=== PATIENT | female | born 1990 | race African-American/Black ===

== ENCOUNTER 2021-01-16 08:16 | Emergency (ER) | payer OTHER ==
[~2021-01-16] VITALS: Ht 167.6 cm; Wt 77.1 kg
[2021-01-16 08:27] VITALS: BP 130/75
[2021-01-16] MEDS ORDERED: FLEXERIL PO (09:22)
[2021-01-16] MEDS ORDERED: IBUPROFEN 800800 M1 PO (09:22)
== END 2021-01-16 10:10 | disposition home or self-care (01) ==
LOC: ER 08:16
DX: S90.02XA Contusion of left ankle, initial encounter (principal); M54.32 Sciatica, left side; Z91.018 Allergy to other foods; W19.XXXA Unspecified fall, initial encounter; Y93.89 Activity, other specified; Y92.89 Other specified places as the place of occurrence of the external cause; Y99.8 Other external cause status

== ENCOUNTER → 2021-03-25 | Outpatient (CLI) | payer OTHER ==
[~2021-03-25] MED LIST: APAP W/CODEINE1 TA2 PO; AZITHROMYCIN250 MG PO; DOXYCYCLINE 10100 MG PO; FLEXERIL PO; IBUPROFEN 800800 M1 PO; INDOMETHACIN 2525 MG PO; SUPER THERAVIT1 EACH PO
[2021-03-25 08:58] LABS: BASOPHILS 0.3 % (0.0-2.0); EOSINOPHILS 2.4 % (0.0-3.0); HEMATOCRIT 28.3 % (37.0-47.0); HEMOGLOBIN 9.8 gm/dL (12.0-15.0); LYMPHOCYTES 15.7 % (24.0-44.0); MCH 27.4 pg (26.0-34.0); MCHC 34.8 g/dL (28.0-37.0); MCV 78.7 fL (80.0-100.0); MONOCYTES 6.8 % (1.0-8.0); PLATELET COUNT 514 thou/uL (150-400); POLYS 74.8 % (36.0-66.0); RBC 3.59 mil/uL (4.20-5.00); RDW 15.2 % (10.5-14.5)
[2021-03-25 09:10] LABS: ALBUMIN 2.7 g/dL (3.4-5.0); CALCIUM 8.8 mg/dL (8.5-10.1); CREATININE 0.9 mg/dL (0.6-1.0); POTASSIUM 4.1 mmol/L (3.5-5.1); TOTAL BILIRUBIN 0.2 mg/dL (0.2-1.0); TOTAL PROTEIN 8.1 g/dL (6.4-8.2)
[2021-03-26 09:08] LABS: ANTI-DNA SCREEN <1 IU/mL (0-9); ANTI-RNP <0.2 AI (0.0-0.9)
== END ==
LOC: ULTRA 08:11
PROVIDERS: ATTEND Nurse Practitioner
DX: E04.1 Nontoxic single thyroid nodule (principal); M25.461 Effusion, right knee; M25.561 Pain in right knee; R10.13 Epigastric pain

== ENCOUNTER → 2021-04-22 | Outpatient (CLI) | payer OTHER | LOC: MRI 10:06 | PROVIDERS: ATTEND Orthopaedic Surgery | DX: M25.561 Pain in right knee (principal) ==

== ENCOUNTER → 2021-06-03 | Outpatient (CLI) | payer OTHER ==
[~2021-06-03] MED LIST changes: +BLACK ELDERBER1 EACH PO; +IRON325 M1 PO; +TURMERIC500 M2 PO; +VITAMIN D3250 MCG PO
== END ==
LOC: MRI 07:55
PROVIDERS: ATTEND Orthopaedic Surgery Foot and Ankle Surgery
DX: S93.402A Sprain of unspecified ligament of left ankle, initial encounter (principal); S93.412A Sprain of calcaneofibular ligament of left ankle, initial encounter; X58.XXXA Exposure to other specified factors, initial encounter; Y92.89 Other specified places as the place of occurrence of the external cause; Y93.89 Activity, other specified; Y99.8 Other external cause status

== ENCOUNTER → 2021-06-05 | Outpatient (CLI) | payer OTHER | LOC: LAB 05:35 | PROVIDERS: ATTEND Student in an Organized Health Care Education/Training Program | DX: Z01.812 Encounter for preprocedural laboratory examination (principal); Z20.822 Contact with and (suspected) exposure to COVID-19 ==

== ENCOUNTER → 2021-06-09 | Outpatient (CLI) | payer OTHER ==
[~2021-06-09] VITALS: Ht 165.1 cm; Wt 68.0 kg
--- NOTE | 2021-06-11 13:07 | PATH ---
[facility] [place] [address] PATHOLOGY RPT PROCEDURE Name: KAITLIN ARANDA Room #: REG QUITALara Alves.#: [id number] Admission: 06/09/21 Date of : 88 Discharge: Report #: [id number] Path Case #: [id number] [facility] Accession Number: [id number] . 01 Material submitted: . PART A: colon - RANDOM COLON BIOPSIES PART B: rectosigmoid junction - RECTAL SIGMOID BIOPSIES . 01 Clinical history: . COLONOSCOPY ABD PAIN, DIARRHEA COLITIS FOR A,B- R/O INFECTIOUS COLITIS VS. INFLAMMATORY BOWEL DISEASE . 02 Diagnosis: A. Random colon, biopsy: - Colonic mucosa with acute colitis and without crypt architectural distortion. - Findings favor infectious-type etiology. - Negative for malignancy. . B. Rectal, sigmoid, endoscopic biopsies: - Colonic mucosa with prominent lymphoid aggregate, otherwise no significant histopathologic abnormality. . (ANK:marbella; 06/11/2021) QLM 06/11/2021 1133 Local . 02 Electronically signed: . Neeru Capps MD, Pathologist NPI- [id number] . 01 Gross description: . A. The specimen is received in formalin, labeled "Kaitlin Aranda, random colon biopsies". Received are multiple segments of pale murillo tissue ranging in size from 0.2 cm to 0.5 cm in maximum dimensions. The specimen is submitted entirely in cassette A1. . B. The specimen is received in formalin, labeled "Kaitlin Aranda, rectal sigmoid biopsies". Received are 4 segments of pale murillo tissue ranging in size from 0.3 to 0.4 cm in maximum dimensions. The specimen is submitted entirely in cassette B1.([facility]; 06/09/2021) [facility] 06/09/2021 1836 Local . 02 Pathologist provided ICD-10: K52.9, Z12.11, R10.9, R19.[address] . [address] [address] PATHOLOGY RPT PROCEDURE Name: KAITLIN ARANDA Room #: REG [facility]#: [id number] Admission: 06/09/21 Date of : 88 Discharge: Report #: [id number] Path Case #: [id number] [facility] . [id number], [id number] Specimen Comment: A courtesy copy of this report has been sent to [phone] Specimen Comment: Report sent to Performed at: [address] [facility] [address], [place], [place] [id number] MD Lito Schaffer MD Phone: [phone] Performed at: [address] [facility] [id number] MD Neeru Capps MD Phone: [phone]
== END | disposition home or self-care (01) ==
LOC: GI 08:08
PROVIDERS: ATTEND Internal Medicine Gastroenterology
DX: K52.9 Noninfective gastroenteritis and colitis, unspecified (principal); K50.10 Crohn's disease of large intestine without complications; R10.9 Unspecified abdominal pain; Z98.890 Other specified postprocedural states; Z79.899 Other long term (current) drug therapy
CPT/HCPCS: 62110; 62900

== ENCOUNTER → 2021-07-07 | Outpatient (CLI) | payer OTHER ==
[2021-07-07 09:13] LABS: ABSOLUTE NEUTROPHILS 3.5 thou/uL (1.4-8.2); BASOPHILS 0.4 % (0.0-2.0); EOSINOPHILS 3.6 % (0.0-3.0); HEMATOCRIT 30.2 % (37.0-47.0); HEMOGLOBIN 9.6 gm/dL (12.0-15.0); LYMPHOCYTES 22.7 % (24.0-44.0); MCH 24.9 pg (26.0-34.0); MCHC 31.7 g/dL (28.0-37.0); MCV 78.6 fL (80.0-100.0); PLATELET COUNT 428 thou/uL (150-400); POLYS 63.3 % (36.0-66.0); RBC 3.85 mil/uL (4.20-5.00); RDW 19.7 % (10.5-14.5); WBC 5.5 thou/uL (4.0-11.0)
[2021-07-07 09:22] LABS: ALBUMIN 2.9 g/dL (3.4-5.0); CREATININE 0.7 mg/dL (0.6-1.0); POTASSIUM 4.1 mmol/L (3.5-5.1); TOTAL BILIRUBIN 0.1 mg/dL (0.2-1.0); TOTAL PROTEIN 8.6 g/dL (6.4-8.2)
[2021-07-07 10:53] LABS: ANISOCYTOSIS 1+; PLATELET ESTIMATE NORMAL
[2021-07-08 09:08] LABS: HEPATITIS B SURFACE AG Negative (Negative)
== END ==
LOC: CAT 07:45
PROVIDERS: ATTEND Internal Medicine Gastroenterology
DX: K63.89 Other specified diseases of intestine (principal); R63.4 Abnormal weight loss; R10.9 Unspecified abdominal pain; K52.9 Noninfective gastroenteritis and colitis, unspecified; R14.0 Abdominal distension (gaseous); R93.89 Abnormal findings on diagnostic imaging of other specified body structures

== ENCOUNTER → 2021-07-16 | Day surgery (SDC) | payer OTHER ==
[~2021-07-16] VITALS: Ht 165.1 cm; Wt 63.0 kg
[~2021-07-16] MED LIST changes: +ASA81BEC PO; +PERCOCET 7.5-31 EAC1 PO
--- NOTE | ~2021-07-16 | O ---
[facility] [place] [address] [address] [place] [address] OPERATIVE REPORT Name: CARMELO GAXIOLA Room #: REG [facility]..#: [id number] Admission: 07/16/21 Attend Phys: Zhao Calloway MD Discharge: Date of : 88 Report #: [id number] THIS REPORT FOR: cc: Blanca Chowdhury Beth RNP Kneidel, Matthew T. MD ~ DATE OF SERVICE: 07/16/2021 PREOPERATIVE DIAGNOSES: 1. Left ankle instability. 2. Left ankle synovitis. POSTOPERATIVE DIAGNOSES: 1. Left ankle instability. 2. Left ankle synovitis. PROCEDURES: 1. Left ankle arthroscopic debridement with synovectomy. 2. Left ankle Brostrom-Fay lateral ligament reconstruction. SURGEON: Zhao Calloway MD HRIS MANAGER: None. ANESTHESIA: General. ESTIMATED BLOOD LOSS: Minimal. DRAINS: No drains. TOURNIQUET TIME: 40 minutes. DESCRIPTION OF PROCEDURE: The patient was brought to the operating room where she was placed under general anesthesia. Once under adequate general anesthesia, her left lower extremity was placed into an arthroscopic thigh support. The left lower extremity was then prepped and draped in a sterile manner. The extremity was elevated, exsanguinated, and tourniquet placed to 300 mmHg. An anteromedial and anterolateral arthroscopic portal was made in the usual fashion. Examination of the joint noted significant synovitis in the inferior syndesmotic region. A synovectomy was performed there with the arthroscopic shaver. Similarly anteriorly, the arthroscopic shaver was used to debride the anterior synovium and a synovectomy was performed there as well. The chondral surfaces were clean. There were no cartilage lesions noted. The wound was then irrigated copiously and the arthroscopic equipment was removed. The extremity was then removed from the arthroscopic thigh support. A curvilinear incision was made just distal to the fibula. Dissection was carried [facility] [address] [place] [address] OPERATIVE REPORT Name: CARMELO GAXIOLA Room #: REG [facility].#: [id number] Admission: 07/16/21 Attend Phys: Zhao Calloway MD Discharge: Date of : 88 Report #: [id number] down to the inferior extensor retinaculum, which was identified and tagged for later use. The anterior talofibular ligament and calcaneofibular ligament were then incised through the mid portions and repaired in a shortened position with 0 Ethibond suture. Excellent repair was achieved. The inferior extensor retinaculum was then advanced to the periosteum of the fibula utilizing 0 Ethibond as well. Multiple sutures were placed through the inferior extensor retinaculum to advance it to the periosteum of the fibula. Excellent repair was achieved in this fashion. The wound was irrigated copiously and closed with 2-0 Vicryl in subcutaneous tissues and wilber for the skin. The wounds were dressed with Xeroform, 4 x 4's, and sterile soft compressive dressing with a short leg cast was placed. Tourniquet was let down at 40 minutes. Toes were pink and warm. Good capillary refill. There were no complications from the procedure. The patient tolerated the procedure well and was to the recovery room without incident. By: [id number] Zhao Calloway MD /nt
[2021-07-16 06:58] LABS: HEMATOCRIT 27.9 % (37.0-47.0); MCH 25.2 pg (26.0-34.0); MCHC 32.2 g/dL (28.0-37.0); MCV 78.4 fL (80.0-100.0); RBC 3.56 mil/uL (4.20-5.00); RDW 19.4 % (10.5-14.5); WBC 5.1 thou/uL (4.0-11.0)
[2021-07-16 07:00] VITALS: BP 117/72
[2021-07-16 08:59] VITALS: BP 117/72
== END | disposition home or self-care (01) ==
LOC: OR
PROVIDERS: Student in an Organized Health Care Education/Training Program; ATTEND Orthopaedic Surgery Foot and Ankle Surgery
DX: M25.372 Other instability, left ankle (principal); M65.872 Other synovitis and tenosynovitis, left ankle and foot; Z98.890 Other specified postprocedural states; Z79.899 Other long term (current) drug therapy; Z98.51 Tubal ligation status; Z79.82 Long term (current) use of aspirin
CPT/HCPCS: 50010; 50101; 50386; 51412; 51647; 56524; 56526; 56528; 57091; 57103; 58589; 58853; 64043; 65060; 70005